=== PATIENT | female | born 1940 | race Hispanic/Latino ===

== ENCOUNTER 2017-02-08 18:01 | Emergency (ER) | payer MEDICARE, OTHER ==
[2017-02-08] MEDS ORDERED: TORADOL IM ONE (23:28)
[2017-02-08] MEDS ORDERED: MORPHINE IM ONE (23:28)
--- NOTE | 2017-02-08 23:35 | Emergency Department Report ---
ED Back Pain/Injury HPI - General Chief Complaint: Back Pain/Injury Stated Complaint: KNEE AND BACK PAIN Time Seen by Provider: 02/08/17 23:17 Source: patient, family Mode of arrival: Ambulatory Limitations: No Limitations, Physical Limitation - History of Present Illness Initial Comments: 76 yo female with h/o lower back pain, was seen by community support specialist in [place] December and referred to physical therapy. She went to physical therapy on Saturday and it exacerbated her chronic back pain. She is here today with c/o pain in lower back. MD Complaint: back pain Onset/Timin -: days(s) Similar Symptoms Previously: Yes (chronic) Place: home Radiation: none, other (rig) Severity: moderate Severity scale (0 -10): 5 Quality: aching Consistency: constant Improves With: medication Worsens With: movement Context: turning/twisting Associated Symptoms: denies other symptoms Treatments Prior to Arrival: heat therapy, NSAIDS, acetaminophen, prescription analgesics - Related Data Previous Rx's Medication Instructions Recorded Last Taken Type Lidocaine [Lidoderm] 1 each TP Q12HR #30 adh..patch 02/08/17 Unknown Rx oxyCODONE /ACETAMINOPHEN [Percocet 1 tab PO Q6HR PRN #60 tablet 02/08/17 Unknown Rx 5/325 mg] Allergies Allergy/AdvReac Type Severity Reaction Status Date / Time No Known Allergies Allergy Unverified 02/08/17 19:27 ED Review of Systems ROS: Stated complaint: KNEE AND BACK PAIN Other details as noted in HPI Constitutional: denies: chills, fever Eyes: denies: eye pain, eye discharge, vision change ENT: denies: ear pain, throat pain Respiratory: denies: cough, shortness of breath, wheezing Cardiovascular: denies: chest pain, palpitations Endocrine: no symptoms reported Gastrointestinal: denies: abdominal pain, nausea, diarrhea Genitourinary: denies: urgency, dysuria, discharge Musculoskeletal: denies: back pain, joint swelling, arthralgia Skin: denies: rash, lesions Neurological: other (no saddle anesthesia,no lower extremity weakness, no urinary or fecal retention or incontinence). denies: headache, weakness, paresthesias Psychiatric: denies: anxiety, depression Hematological/Lymphatic: denies: easy bleeding, easy bruising ED Past Medical Hx - Past Medical History Previous Medical History?: Yes Hx Hypertension: Yes Hx Diabetes: Yes Hx Arthritis: Yes - Surgical History Past Surgical History?: Yes Additional Surgical History: bilateral knee replacement - Family History Family history: diabetes - Social History Smoking Status: Never Smoker Substance Use Type: Prescribed - Medications Home Medications: Home Medications Medication Instructions Recorded Confirmed Last Taken Type Lidocaine [Lidoderm] 1 each TP Q12HR #30 adh..patch 02/08/17 Unknown Rx oxyCODONE /ACETAMINOPHEN [Percocet 1 tab PO Q6HR PRN #60 tablet 02/08/17 Unknown Rx 5/325 mg] ED Physical Exam - General Limitations: Physical Limitation General appearance: alert, in no apparent distress - Head Head exam: Present: atraumatic - Eye Eye exam: Present: normal appearance - Neck Neck exam: Present: normal inspection, other (surgical scar) - Respiratory Respiratory exam: Present: normal lung sounds bilaterally - Cardiovascular Cardiovascular Exam: Present: regular rate, normal rhythm, systolic murmur - GI/Abdominal GI/Abdominal exam: Present: soft, other (central obesity) - Rectal Rectal exam: Present: deferred - Neurological Exam Neurological exam: Present: alert, oriented X3, CN II-XII intact, reflexes normal, other (uses walker due to chronic pain) - Psychiatric Psychiatric exam: Present: normal affect, normal mood (pleasant person) ED Course Vital Signs 02/08/17 19:27 Temperature 97.9 F Pulse Rate 56 L Respiratory 16 Rate Blood Pressure 166/77 O2 Sat by Pulse 100 Oximetry ED Medical Decision Making - Medical Decision Making 76 yo female has chronic back pain exacerbated by physical therapy on Saturday and has had multiple MRI and xrays. This is an exacerbation and nothing new , will not persue films. Pt is out of her regular pain medication Critical care attestation.: If time is entered above; I have spent that time in minutes in the direct care of this critically ill patient, excluding procedure time. ED Disposition Clinical Impression: Arthritis Back pain Qualifiers: Back pain location: low back pain Chronicity: chronic Back pain laterality: midline Sciatica presence: without sciatica Qualified Code(s): M54.5 - Low back pain; G89.29 - Other chronic pain; G89.29 - Other chronic pain Disposition: TO HOME OR SELFCARE Is pt being admited?: No Does the pt Need Aspirin: No Condition: Stable Instructions: Chronic Back Pain (ED) Additional Instructions: Please continue your physical therapy. Prescriptions: Lidocaine [Lidoderm] 1 each TP Q12HR #30 adh..patch oxyCODONE /ACETAMINOPHEN [Percocet 5/325 mg] 1 tab PO Q6HR PRN #60 tablet PRN Reason: Pain Referrals: PRIMARY CARE,MD [Primary Care Provider] - 3-5 Days Forms: Work/School Release Form(ED) Time of Disposition: 23:52 Print Language: MACEDONIAN
[2017-02-09 00:09] VITALS: BP 183/68
== END 2017-02-09 00:10 | disposition home or self-care (01) ==
LOC: EDBD 18:01 → ED 18:01
DX: M54.5 Low back pain (principal); G89.29 Other chronic pain; M19.90 Unspecified osteoarthritis, unspecified site; I10 Essential (primary) hypertension; E11.9 Type 2 diabetes mellitus without complications
CPT/HCPCS: 96372; 99282; J1885; J2270